=== PATIENT | male | born 1950 | race Caucasian/White ===

== ENCOUNTER → 2023-04-10 | Outpatient (CLI) | payer MEDICARE ==
--- NOTE | 2023-04-27 22:17 | CE ---
14 DAY EVENT MONITOR REPORT A 14-day event monitor. FINDINGS: The patient was monitored for 14 days. The baseline rhythm appeared to be sinus mechanism. The patient did not have any evidence of atrial fibrillation or atrial flutter. The patient did not have any evidence of sinus pause or sinus arrest. The patient did not have any evidence of advanced AV block. CONCLUSION: This is a normal 14 days event monitor. MMNANCY / EVENSN: [id number] / MTDD
== END | disposition home or self-care (01) ==
LOC: RADECHMAIN 12:29
PROVIDERS: ATTEND Internal Medicine
DX: H34.11 Central retinal artery occlusion, right eye (principal)
CPT/HCPCS: 93270

== ENCOUNTER → 2024-02-06 | Outpatient (CLI) | payer MEDICARE ==
--- NOTE | 2024-02-06 09:50 | US ---
EXAMINATION TYPE: US abdomen complete DATE OF EXAM: 02/06/2024 COMPARISON: NONE CLINICAL INDICATION: Male, 73 years old with history of M54.50 LOW BACK PAIN; R10.11 RUQ PAIN; RUQ pa in, known GB Stones TECHNIQUE: Multiple sonographic images of the abdomen are obtained. FINDINGS: EXAM MEASUREMENTS: Liver Length: 18.8 cm Gallbladder Wall: 0.2 cm CBD: 0.5 cm Spleen: 10.4 cm Right Kidney: 10.2 x 5.2 x 5.7cm Left Kidney: 10.7 x 5.3 x 6.1 cm Pancreas: wnl Liver: upper limits of normal with fatty sparring Gallbladder: multiple mobile dependant stones seen Evidence for sonographic Brian's sign: no CBD: wnl Spleen: wnl Right Kidney: wnl Left Kidney: wnl Upper IVC: wnl Abd Aorta: wnl The liver is homogenous with increased echotexture. The intrahepatic portion of the IVC and proximal abdominal aorta are within normal limits. Multiple gallstones present. Common bile duct is unremark able. The visualized portions of the pancreas are homogenous. The spleen is unremarkable. Kidneys are symmetric and free of hydronephrosis. No renal lesions are seen. IMPRESSION: 1. Hepatic steatosis with focal fatty sparing. 2. Cholelithiasis.
== END | disposition home or self-care (01) ==
LOC: RADUSWWP 07:46
PROVIDERS: ATTEND Internal Medicine
DX: K80.20 Calculus of gallbladder without cholecystitis without obstruction (principal); K76.0 Fatty (change of) liver, not elsewhere classified; M54.50 Low back pain, unspecified
CPT/HCPCS: 76700

== ENCOUNTER → 2025-01-30 | Outpatient (CLI) | payer MEDICARE ==
--- NOTE | 2025-01-30 12:47 | BD ---
EXAMINATION TYPE: Axial Bone Density DATE OF EXAM: 01/30/2025 CLINICAL HISTORY: 74 years old Male. ICD-10 CODE: M85.89 OTH DISRD OF BONE DENSITY AND STRUCTURE, MU , Additional History: Height: 65 in Weight: 176 lbs FRAX RISK QUESTIONS: History of Fracture in Adulthood: rt rib fx age 74; Secondary Osteoporosis: 5. Chronic liver disease: fatty liver EXAM MEASUREMENTS: Bone mineral densitometry was performed using the [employer]. Bone mineral density as measured about the Lumbar spine is: ----- L1-L4(G/cm2): 1.052 T Score Values are as follows: ----- L1: -0.9 ----- L2: -1.2 ----- L3: -1.2 ----- L4: -1.1 ----- L1-L4: -1.1 Z Score Values are as follows: ----- L1: -0.6 ----- L2: -1.0 ----- L3: -1.0 ----- L4: -0.9 ----- L1-L4: -0.9 Bone mineral density baseline Bone mineral density about the R hip (g/cm2): 0.862 Bone mineral density about the L hip (g/cm2): 0.877 T Score values are as follows: -----R Neck: -1.8 -----L Neck: -2.3 -----R Total: -1.2 -----L Total: -1.0 Z Score values are as follows: -----R Neck: -0.9 -----L Neck: -1.4 -----R Total: -0.9 -----L Total: -0.8 Bone mineral density baseline FRAX%s: The graph provided illustrates a 15.8% chance for a major osteoporotic fx and a 5.9% chance f or the hips probability for fx in 10 years time. IMPRESSION: Osteopenia (T Score between -2.5 and -1). There is slightly increased risk of fracture and the patient may be considered for treatment. Re-Screen 2-5 years. NOTE: T-SCORE=SD OF THE YOUNG ADULT MEAN. [facility], , 01/30/2025 12:44 PM
== END | disposition home or self-care (01) ==
LOC: RADBDWWP 09:56
PROVIDERS: ATTEND Family Medicine
DX: M85.89 Other specified disorders of bone density and structure, multiple sites (principal)
CPT/HCPCS: 77080

== ENCOUNTER → 2025-05-25 | Outpatient (CLI) | payer MEDICARE ==
--- NOTE | 2025-05-25 10:09 | MR ---
EXAMINATION TYPE: MR abdomen wo/w con DATE OF EXAM: 05/25/2025 8:57 AM COMPARISON: Ultrasound CLINICAL INDICATION: Male, 74 years old with history of N28.89 Other disorders of kidney ureter; PHH, Abdominal pain. TECHNIQUE: Multiplanar multi-sequence imaging was performed without contrast. Post contrast imaging was performed. Post IV contrast subtraction images were also submitted for review. IV Contrast: 8 mL Gadobutrol FINDINGS: LOWER CHEST: No gross irregularity. ABDOMEN Liver: No evidence for cirrhosis. Minimal Signal dropout on chemical shift out of phase imaging. Gallbladder and Bile ducts: No evidence for ductal dilation, or biliary stricture or evidence of chol edocholithiasis. The gallbladder multiple layering gallstones in the gallbladder lumen. Pancreas: Mildly complex pancreatic tail 18 x 8 mm cystic lesion No ductal dilation. No evidence for solid mass. Spleen: Normal for size. Adrenal glands: Unremarkable. Kidneys: No evidence for obstructive uropathy. No suspicious renal masses. Simple appearing high T2 s ignal renal cysts which are subcentimeter. No follow up recommended.r Stomach and Bowel: No evidence for bowel wall thickening or evidence for obstruction. Retroperitoneum/Peritoneum: No evidence of pneumoperitoneum or free fluid. Vasculature: No aortic aneurysm. Musculoskeletal: The osseous structures appear intact. Lymph Nodes: No gross evidence for lymphadenopathy. Abdominal wall: Unremarkable. IMPRESSION: 1. No evidence for acute abdominal process. No abnormal postcontrast enhancement. 2. Extensive cholelithiasis. 3. Pancreatic tail cystic lesion possibly representing sequela of prior pancreatitis versus side bra nch intraductal mucinous neoplasm versus other cystic neoplasms. Attention on follow-up imaging in on e year with MRI MRCP with contrast to ensure stability. 4. Mild hepatic steatosis. 5. No evidence for hydronephrosis and no evidence for solid renal neoplasm. [facility], , 05/25/2025 10:07 AM
--- NOTE | 2025-05-25 10:58 | MR ---
EXAMINATION TYPE: MR shoulder LT wo con DATE OF EXAM: 05/25/2025 8:56 AM COMPARISON: None. CLINICAL INDICATION: Male, 74 years old with history of S49.92XA INJURY OF LEFT SHOULDER N28.89 R14.0 , Left shoulder pain x 1 year, no trauma. IV Contrast: cc (None if empty) TECHNIQUE: Multiplanar, multisequence imaging of the left shoulder is performed without contrast. FINDINGS: Rotator Cuff: Some increased signal in the infraspinatus tendon. More prominent increased signal thro ughout the supraspinatus tendon. Intact subscapularis tendon with surrounding fluid. Mild generalized atrophy of the subscapularis muscle. Acromioclavicular Joint: And at least moderate narrowing greatest posteriorly. Moderate capsular hype rtrophy. Subchondral cystic change. Glenohumeral Joint: Moderate size joint effusion. No significant spurring. Labrum: The labrum appears grossly intact given limitation of non-arthrogram study. Biceps Tendon: The long head of biceps is in normal location within bicipital groove. Bone marrow signal: No focal abnormal marrow signal is appreciated. Other: No additional significant abnormality is appreciated. IMPRESSION: 1. Mild tendinosis of the infraspinatus tendon. More moderate tendinosis/partial tearing of the supra spinatus tendon. 2. At least moderate degenerative changes are present as detailed above. [facility], , 05/25/2025 10:56 AM
== END | disposition home or self-care (01) ==
LOC: RADMRIMAIN 07:09
PROVIDERS: ATTEND Family Medicine
DX: S49.92XA Unspecified injury of left shoulder and upper arm, initial encounter (principal); N28.89 Other specified disorders of kidney and ureter; K80.20 Calculus of gallbladder without cholecystitis without obstruction; K76.0 Fatty (change of) liver, not elsewhere classified; K86.2 Cyst of pancreas; M67.814 Other specified disorders of tendon, left shoulder; M19.012 Primary osteoarthritis, left shoulder
CPT/HCPCS: 74183; 73221; A9585

== ENCOUNTER → 2025-05-28 | Outpatient (CLI) | payer MEDICARE ==
--- NOTE | 2025-05-28 10:53 | MR ---
EXAMINATION TYPE: MR pelvis wo/w con DATE OF EXAM: 05/28/2025 COMPARISON: MR abdomen 05/25/2025, abdominal ultrasound 02/06/2024 CLINICAL INDICATION:Male, 74 years old with history of N28.89 kidney disorder; [facility], TECHNIQUE: Triplane multisequence imaging was performed of the pelvis. Then the patient was given c ontrast/gadolinium, 8 cc of Gadobutrol and multiple post contrast sequences where obtained. FINDINGS: Reproductive: Prostate: Mildly enlarged measuring 5.2 cm in transverse dimension with BPH nodules. This indents upo n the urinary bladder base. Seminal vesicle's: Unremarkable. Testes: Small bilateral hydroceles. Bladder: Underdistended. There is an enhancing 4 mm focus along the posterior left urinary bladder wa ll near the ureterovesical junction (series 1001, image 70).. Bowel: No evidence of bowel obstruction. Sigmoid diverticulosis without evidence for acute diverticul itis.. Peritoneum: No free fluid. No evidence of adenopathy. Vasculature: Unremarkable. Abdominal wall/soft tissues: Fat filled bilateral inguinal hernias. Musculoskeletal: Multilevel degenerative changes of the visualized lumbar spine. T1/T2 hyperintense l esion within the left aspect of the L3 vertebral body. Favored to represent a vertebral hemangioma. IMPRESSION: 1. Small 4 mm enhancing urinary bladder focus along the posterior left wall concerning for possible n eoplasm. Recommend direct visualization. 2. Prostatomegaly with BPH nodules. 3. Sigmoid diverticulosis without evidence for acute diverticulitis. 4. Fat filled bilateral inguinal hernias. [facility], , 05/28/2025 10:50 AM
== END | disposition home or self-care (01) ==
LOC: RADMRIMAIN 09:10
PROVIDERS: ATTEND Family Medicine
DX: N28.89 Other specified disorders of kidney and ureter (principal); N40.0 Benign prostatic hyperplasia without lower urinary tract symptoms; K57.30 Diverticulosis of large intestine without perforation or abscess without bleeding; K40.20 Bilateral inguinal hernia, without obstruction or gangrene, not specified as recurrent
CPT/HCPCS: 72197; A9585